=== PATIENT | female | born 1970 | race Caucasian/White ===

== ENCOUNTER → 2017-03-06 | Outpatient (CLI) | payer OTHER ==
[~2017-03-06] MED LIST: BACTRIM DS TABL1 TAB PO
--- NOTE | ~2017-03-06 | MR17 ---
[facility] A Service of [facility] & [facility] RADIOLOGY TEXT RESULTS PATIENT: REEMA VIRAMONTES LOCATION: [facility] : 66 UNIT #: [id number] AGE: [address]: Juan Garcia MD SEX: F ORDER DR: [id number] [address] [id number] [id number] O MR#: [id number] Acc #: [id number] NAME: REEMA VIRAMONTES. : 1970 SEX: F STUDY DATE/TIME: 03/06/2017 9:20 UNIT: [facility] ROOM: STUDY DESCRIPTION: MR Brain WWo Contrast Attending Physician: Juan Garcia M.D. Referring Physician: Juan Gacria M.D. Ordering Physician: Juan Garcia M.D. Primary Care Physician: Juan Garcia M.D. MRI CENTER REPORT This report is preliminary unless electronic signature is present. EXAM MRI the brain and IACs with and without contrast HISTORY Anosmia for the past 1-2 months. Chronic headaches. Previous history of carotid body tumor. TECHNIQUE Multiplanar imaging of the brain was performed with thin detailed sections through the IACs with and without contrast. 20 mL of MultiHance was used. FINDINGS On diffusion weighted images there is no evidence of abnormal restricted diffusion to suggest a recent infarct. The routine brain images show normal ventricular size. No white matter signal abnormalities are seen. There is no evidence of mass lesion, hemorrhage or edema. Postoperative changes are seen at the skull base on the left and the temporal bone. There is a satisfactory postoperative appearance with no evidence of enhancing mass lesion. There is no evidence of skull base tumor. In particular, no suspicious masses are seen along the cribriform plate or along the olfactory tracts. The sinuses are clear. No destructive bone lesions are seen at the skull base. No masses are seen in the nasal cavity. The septum deviates toward the right. 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 IMPRESSION Postoperative changes left skull base. No evidence of mass lesion or significant abnormality along the olfactory tracts. No evidence of significant sinus disease. Septal deviation toward the right is noted. Also noted but not mentioned above is a very small arachnoid cyst at the left temporal lobe tip. It is almost certainly an incidental finding and only measures 9 mm in diameter. [facility] A Service of [facility] RADIOLOGY TEXT RESULTS PATIENT: REEMA VIRAMONTES LOCATION: [facility] [place] : 66 UNIT #: [id number] AGE: [address]: Juan Garcia MD SEX: F ORDER DR: Dictated by... Manpreet Singh M.D. THIS IS AN ELECTRONICALLY VERIFIED REPORT Manpreet Singh M.D. at 03/14/2017 10:03 AM SIMON/isaias TD: 03/13/2017 22:03 JOB #: [id number] MRI CENTER REPORT Page 1 of 1
== END | disposition home or self-care (01) ==
LOC: SMRI 09:05
DX: R43.0 Anosmia (principal); D44.6 Neoplasm of uncertain behavior of carotid body; R51 Headache
CPT/HCPCS: 70553; A9581